=== PATIENT | male | born 1995 | race African-American/Black ===

== ENCOUNTER 2016-06-11 11:38 | Emergency (ER) | payer OTHER ==
[2016-06-11 11:42] VITALS: BP 140/69; PULSE 96; TEMP 98.2; BMI 23.5
[2016-06-11 12:08] LABS: URINE APPEARANCE CLEAR; URINE BILIRUBIN NEGATIVE (NEGATIVE); URINE BLOOD NEGATIVE (NEGATIVE); URINE COLOR STRAW; URINE GLUCOSE (UA) NEGATIVE (NEGATIVE); URINE KETONE NEGATIVE (NEGATIVE); URINE LEUK ESTERASE NEGATIVE (NEGATIVE); URINE NITRITE NEGATIVE (NEGATIVE); URINE PROTEIN NEGATIVE (NEGATIVE); URINE UROBILINOGEN NEGATIVE E.U./dl (0.2-1.0)
[2016-06-11] MEDS ORDERED: AZITHROMYCIN 1 GM PACKET PO ONE (12:45)
--- NOTE | 2016-06-11 12:56 | PDOC ---
History of Present Illness - General Chief Complaint: Pain Stated Complaint: GENITAL PAIN Time Seen by Provider: 06/11/16 12:09 History Source: Patient Exam Limitations: No Limitations - History of Present Illness Travel History: No Initial Comments: 06/11/16 23:02 CHIEF COMPLAINT: redness and tenderness to the penis HISTORY OF PRESENT ILLNESS: He is a 21-year-old male with no significant medical history here today complaining of tenderness with redness to tip of penis since 06/07/16 after having unprotected sex with his 5 mth old girlfriend. She denies any discharge patient reports that area is more tender after urinating due to a stinging that area. Patient denies any testicular pain. Patient denies any history of having previous STDs. Patient denies any vesicular lesions on penis. Patient denies any urinary urgency or frequency or hematuria. Timing/Duration: reports: getting worse Quality: reports: other (stinging sensation with urination) Abdominal Pain Onset Location: reports: other (around urinary meatus) Pain Radiation: reports: other (urinary meatus) Activities at Onset: reports: other (after having sex06/07/16) Treatment Prior to Arrive: improves with: other (non e) Aggravating Factors: improves with: Voiding Alleviating Factors: improves with: None Past History - Past Medical History Allergies/Adverse Reactions: Allergies Allergy/AdvReac Type Severity Reaction Status Date / Time No Known Allergies Allergy Verified 06/11/16 11:42 Home Medications: Ambulatory Orders NK [No Known Home Medication] 06/11/16 Other medical history: denies - Psycho/Social/Smoking Cessation Hx Suicidal Ideation: No Smoking History: Never smoked Information on smoking cessation initiated: No Hx Alcohol Use: No Drug/Substance Use Hx: No Substance Use Type: None Review of Systems - Review of Systems Able to Perform ROS?: Yes Constitutional: No: Symptoms Reported HEENTM: No: Symptoms Reported Respiratory: No: Symptoms reported Cardiac (ROS): No: Symptoms Reported ABD/GI: No: Symptoms Reported : Yes: Pain (around urinary meatus stinging sensation ), Other (erythema around urinary meatus). No: Burning, Dysuria, Discharge, Frequency, Flank Pain , Hematuria, Incontinence, Urgency, Testicular Mass, Testicular Swelling, Lesions, Testicular Pain Musculoskeletal: No: Symptoms Reported Integumentary: No: Symptoms Reported Neurological: No: Symptoms reported *Physical Exam - Vital Signs Last Vital Signs Temp Pulse Resp BP Pulse Ox 98.2 F 96 H 18 140/69 100 06/11/16 11:40 06/11/16 11:40 06/11/16 11:40 06/11/16 11:40 06/11/16 11:40 - Physical Exam General Appearance: Yes: Appropriately Dressed Respiratory/Chest: positive: Lungs Clear, Normal Breath Sounds. negative: Chest Tender, Respiratory Distress Cardiovascular: positive: Regular Rhythm, Regular Rate, S1, S2 Gastrointestinal/Abdominal: positive: Normal Bowel Sounds, Soft. negative: Tender, Organomegaly, Distended, Guarding, Rebound, Tenderness, Hepatomegaly, Spleenomegaly Male Genitalia: positive: other (erythema around urinary meatus no vesicles ). negative: discharge, testicular tenderness, testicular mass, epididymus tender, inguinal hernia, hernia, hematuria Rectal Exam: negative: heme negative stool Neurologic: positive: Alert, Normal Response ED Treatment Course - ADDITIONAL ORDERS Additional order review: Laboratory Results 06/11/16 11:59 Urine Color Straw Urine Appearance Clear Urine pH 7.0 Ur Specific [place] 1.013 Urine Protein Negative Urine Glucose (UA) Negative Urine Ketones Negative Urine Blood Negative Urine Nitrite Negative Urine Bilirubin Negative Urine Urobilinogen Negative Ur Leukocyte Esterase Negative Medical Decision Making - Medical Decision Making 06/11/16 23:05 He is a 21-year-old male with no significant medical history here today complaining of tenderness with redness to tip of penis since 06/07/16 after having unprotected sex with his 5 mth old girlfriend. She denies any discharge patient reports that area is more tender after urinating due to a stinging that area. Patient denies any testicular pain. Patient denies any history of having previous STDs. Patient denies any vesicular lesions on penis. Patient denies any urinary urgency or frequency or hematuria. 06/11/16 23:05 Redness and tenderness to tip of penis around urinary meatus unprotected sex r/o STD's PLAN: herpes simplex culture urine chlamydia/GC amplification RPR u/a azithromycin 1 mg po now rocephin 250 mg IM now Urology 06/11/16 23:06 Laboratory Tests 06/11/16 11:59 Urine Color Straw Urine Appearance Clear Urine pH 7.0 Ur Specific [place] 1.013 Urine Protein Negative Urine Glucose (UA) Negative Urine Ketones Negative Urine Blood Negative Urine Nitrite Negative Urine Bilirubin Negative Urine Urobilinogen Negative Ur Leukocyte Esterase Negative 06/11/16 23:07 *DC/Admit/Observation/Transfer Diagnosis at time of Disposition: Unprotected sex, Urethritis, nonspecific - Discharge Dispostion Disposition: HOME Condition at time of disposition: Stable - Referrals Referrals: Ann Land [Primary Care Provider] - Baltazar Romo MD [Staff Physician] - - Patient Instructions Additional Instructions: Follow up with urologist for further evaluation within the next few days return to emergency room if symptoms worsen Refrain from sexual relations for 2 weeks use condoms Patient voiced understanding of discharge instructions and all questions were answered.
[2016-06-11] MEDS ORDERED: AZITHROMYCIN 1 GM PACKET ONE (12:57)
== END 2016-06-11 13:31 | disposition home or self-care (01) ==
LOC: JERFT 11:38
DX: N34.2 Other urethritis (principal)
CPT/HCPCS: 36415; 81003; 86593; 87086; 87255; 87491; 87591; 99281-25

== ENCOUNTER 2018-08-24 18:50 | Emergency (ER) | payer OTHER ==
[2018-08-24 19:02] VITALS: BP 137/66; PULSE 89; TEMP 98.4; BMI 26.6
--- NOTE | 2018-08-24 19:03 | PDOC ---
Rapid Medical Evaluation Time Seen by Provider: 08/24/18 18:57 Medical Evaluation: Allergies Allergy/AdvReac Type Severity Reaction Status Date / Time No Known Allergies Allergy Verified 08/04/17 15:25 08/24/18 18:57 Pt presents for penile pain and low back pain. He states he has low back pain for one month. The penile pain started three days ago, he feels like there is a cut. Is also concerned about STD's and is requesting testing today Exam: paraspinous tenderness b/l. No midline tenderness. exam deferred Order: STD testing, urine Pt to proceed to the ER for further evaluation Discharge Disposition - Diagnosis Penile pain Back pain Qualifiers: Back pain location: low back pain Chronicity: acute Back pain laterality: bilateral Sciatica presence: without sciatica Qualified Code(s): M54.5 - Low back pain - Referrals - Patient Instructions - Post Discharge Activity
[2018-08-24] MEDS ORDERED: AZITHROMYCIN 250 MG TABLET PO ONE (20:14)
--- NOTE | 2018-08-24 20:18 | PDOC ---
History of Present Illness - General Chief Complaint: Back Pain Stated Complaint: BACK PAIN/GENITAL PAIN Time Seen by Provider: 08/24/18 18:57 - History of Present Illness Initial Comments: 08/24/18 20:15 23-year-old male sexually active with unprotected sex in a monogamous relationship he believes presents for evaluation of dysuria times one week no systemic symptoms or discharge 08/24/18 20:17 LBP without radiculopathy x1 Month Past History - Past Medical History Allergies/Adverse Reactions: Allergies Allergy/AdvReac Type Severity Reaction Status Date / Time No Known Allergies Allergy Verified 08/04/17 15:25 Home Medications: Ambulatory Orders NK [No Known Home Medication] 06/11/16 COPD: No - Immunization History Immunization Up to Date: No - Suicide/Smoking/Psychosocial Hx Smoking History: Never smoked Have you smoked in the past 12 months: No Information on smoking cessation initiated: No Hx Alcohol Use: No Drug/Substance Use Hx: No Substance Use Type: None Review of Systems - Review of Systems : Yes: Burning, Dysuria *Physical Exam - Vital Signs Last Vital Signs Temp Pulse Resp BP Pulse Ox 98.4 F 89 18 137/66 98 08/24/18 18:59 08/24/18 18:59 08/24/18 18:59 08/24/18 18:59 08/24/18 18:59 - Physical Exam Comments: 08/24/18 20:15 HEAD: NC/AT EYES: Conjuntiva clear External genitalia are normal there no lesions or discharge expressed from the urethra MS: Full ROM in all joints without edema NEUROLOGIC: No gross sensory or motor deficits, NVID SKIN: Normal color and temperature no lesions or rashes Lumbar spine range of motion is full and nonpainful no tenderness 5 out of 5 strength bilateral lower extremities without gross sensory motor deficits. Mild paralumbar muscular tenderness no spasm 08/24/18 20:18 Medical Decision Making - Medical Decision Making 08/24/18 21:17 X-rays of the lumbar spine show no evidence of fracture trauma or destructive process. 08/24/18 22:25 L/S results noted, discussed with the pt who will f.u with neuro sx. treated for GC, HIV negative. Discussed the use of tylenol and motrin for pain. *DC/Admit/Observation/Transfer Diagnosis at time of Disposition: Penile pain, Urethritis, nonspecific, Unprotected sex, Concern about STD in male without diagnosis Back pain Qualifiers: Back pain location: low back pain Chronicity: acute Back pain laterality: bilateral Sciatica presence: without sciatica Qualified Code(s): M54.5 - Low back pain - Discharge Dispostion Disposition: HOME Condition at time of disposition: Stable Decision to Admit order: No - Referrals Referrals: [facility] [Provider Group] Abraham Bruno MD, FAANS [Staff Physician] - - Patient Instructions Printed Discharge Instructions: How to Detect and Treat STDs, Chlamydia: The Silent STD, Facts About Sexually Transmitted Infections, Low Back Pain, DI for Low Back Pain Additional Instructions: Tylenol and Motrin field lower back pain. Return to the emergency room for worsening symptoms. UA treated for gonorrhea and chlamydia today in the emergency room. HIV test is negative. Follow-up with the [facility] for further evaluation and treatment or any concerns regarding sexually transmitted diseases. Also follow-up with neurosurgery for further evaluation and treatment of a lower back pain. As discussed your lower back x-ray was abnormal which may be causing her lower back pain. There is nothing emergent to do this evening but follow-up is required without fail within the next 1-2 days. Suture symptoms persist return to the emergency room. - Post Discharge Activity
[2018-08-24 20:37] LABS: PH,URINE 5.5 (5.0-8.0); URINE APPEARANCE CLEAR; URINE BILIRUBIN NEGATIVE (NEGATIVE); URINE COLOR YELLOW; URINE GLUCOSE (UA) NEGATIVE (NEGATIVE); URINE KETONE TRACE (NEGATIVE); URINE LEUK ESTERASE NEGATIVE (NEGATIVE); URINE NITRITE NEGATIVE (NEGATIVE); URINE PROTEIN NEGATIVE (NEGATIVE); URINE UROBILINOGEN 0.2 mg/dL (0.2-1.0)
[2018-08-24] MEDS ORDERED: AZITHROMYCIN 500 MG TABLET ONE (20:38)
== END 2018-08-24 22:32 | disposition home or self-care (01) ==
LOC: JERFT 18:50
DX: N34.1 Nonspecific urethritis (principal); Z11.3 Encounter for screening for infections with a predominantly sexual mode of transmission; Z72.51 High risk heterosexual behavior; Z71.1 Person with feared health complaint in whom no diagnosis is made
CPT/HCPCS: 36415; 72100-TC-FY; 81003; 86593; 87086; 87389; 87491; 87591; 96372; 99283-25